=== PATIENT | male | born 1965 | race Two or more races ===

== ENCOUNTER 2023-04-22 20:33 | Emergency (ER) | payer MEDICAID, OTHER ==
[~2023-04-22] VITALS: Ht 182.9 cm; Wt 138.5 kg
[2023-04-22] MEDS: SODIUM CHLORIDE 0.9% 1,000 ML IVB ONE (21:26)
[2023-04-22 21:37] LABS: Basophils # (auto) 0 10 ^3/uL (0-0.2); Basophils % (auto) 0.7 % (0.0-2.0); Eosinophils # (auto) 0.4 10 ^3/uL (0-0.8); Eosinophils % (auto) 5.7 % (0.0-7.0); Hematocrit 38.7 % (41.0-53.0); Hemoglobin 12.9 g/dL (13.5-17.5); Lymphocytes # (auto) 1.1 10 ^3/uL (0.4-5.4); Mean Corpuscular Hemoglobin 28.2 pg (28.0-32.0); Mean Corpuscular Hgb Conc. 33.4 g/dL (32.0-36.0); Mean Corpuscular Volume 84.5 fL (80.0-100.0); Monocytes # (auto) 0.5 10 ^3/uL (0-1.3); Monocytes % (auto) 7.9 % (0.0-12.0); Neutrophils # (auto) 4.7 10 ^3/uL (1.6-8.6); Neutrophils % (auto) 69.7 % (37.0-80.0); Nucleated Red Blood Cells % 0.2 %; Red Blood Cells 4.57 10^6/uL (4.5-5.90); Red Cell Distribution Width 13.2 % (11.8-14.3); White Blood Cell 6.7 10^3/uL (4.4-10.8)
[2023-04-22] MEDS: ONDANSETRON HCL 4 MG/2 ML VIAL IV ONE (21:39)
[2023-04-22] MEDS: MORPHINE SULFATE 4 MG/ML SYR/VIAL IV ONE (21:40)
[2023-04-22 21:52] LABS: INR 1.13 (0.9-1.15); Prothrombin Time 11.8 sec (9.3-11.8)
[2023-04-22 21:53] LABS: Alanine Aminotransferase 49 U/L (7-40); Albumin 4.4 g/dL (3.2-4.8); Alkaline Phosphatase 110 U/L (46-116); Anion Gap 9 (5-15); Aspartate Aminotransferase 51 U/L (13-40); BUN/Creatinine Ratio 7.6 (10.0-20.0); Blood Urea Nitrogen 8 mg/dL (9-23); Calcium 8.7 mg/dL (8.7-10.4); Carbon Dioxide 22 mmol/L (20-30); Chloride 109 mmol/L (98-107); Glucose 108 mg/dL (74-106); Lipase 54 U/L (12-53); Potassium 3.1 mmol/L (3.5-5.1); Sodium 140 mmol/L (136-145)
[2023-04-22 21:54] LABS: Bilirubin, Total 0.6 mg/dL (0.2-1.0); Total Protein 7.7 g/dL (5.7-8.2)
[2023-04-22 22:03] LABS: Rapid Influenza A Negative (Negative); Rapid Influenza B Negative (Negative)
[2023-04-22 22:04] LABS: COVID19 ANTIGEN SOFIA FIA NEGATIVE (NEGATIVE)
[2023-04-22] MEDS: POTASSIUM CHL 20 Meq TABLET PO ONE (23:22)
[2023-04-23] MEDS: IOHEXOL 350 MG/ML 100ML IJ ONE (00:09)
[2023-04-23] MEDS ORDERED: ZOFR4T PO (01:41)
[2023-04-23] MEDS ORDERED: APIX5TAB PO (01:41)
[2023-04-23] MEDS ORDERED: METO25TA5 PO (01:41)
[2023-04-23] MEDS ORDERED: AUG875T PO (01:41)
[2023-04-23] MEDS ORDERED: ACET-1304 PO (01:41)
[2023-04-23] MEDS: METOPROLOL SUCCINATE XL 50 MG TAB PO ONE (02:03)
[2023-04-23 02:08] VITALS: BP 178/112; PULSE 97; RESP 18; TEMP 98.4; O2SAT 95
== END 2023-04-23 02:10 | disposition home or self-care (01) ==
LOC: ER 20:33
DX: R07.89 Other chest pain (principal); J06.9 Acute upper respiratory infection, unspecified; R11.10 Vomiting, unspecified; R19.7 Diarrhea, unspecified; I10 Essential (primary) hypertension; Z20.822 Contact with and (suspected) exposure to COVID-19
CPT/HCPCS: 36415; 70450; 71045; 71275; 80053; 83690; 83880; 84484; 85025; 85379; 85610; 85730; 87426; 87804; 93005; 96361; 96374; 96375; 99285; J2270; J2405; J7030; Q9967

== ENCOUNTER 2023-05-04 05:01 | Inpatient (IN) | payer MEDICAID ==
[~2023-05-04] VITALS: Ht 180.3 cm; Wt 169.8 kg
[~2023-05-04 05:01] MED LIST: ACET-1304 PO; APIX5TAB PO; AUG875T PO; METO25TA5 PO; ZOFR4T PO
[2023-05-04 05:27] LABS: Basophils # (auto) 0.1 10 ^3/uL (0-0.2); Basophils % (auto) 0.7 % (0.0-2.0); Eosinophils # (auto) 0.2 10 ^3/uL (0-0.8); Eosinophils % (auto) 1.7 % (0.0-7.0); Hemoglobin 12.4 g/dL (13.5-17.5); Lymphocytes # (auto) 1.3 10 ^3/uL (0.4-5.4); Mean Corpuscular Hemoglobin 28.3 pg (28.0-32.0); Mean Corpuscular Hgb Conc. 33.4 g/dL (32.0-36.0); Mean Corpuscular Volume 84.8 fL (80.0-100.0); Monocytes # (auto) 0.6 10 ^3/uL (0-1.3); Monocytes % (auto) 6.3 % (0.0-12.0); Neutrophils # (auto) 7.3 10 ^3/uL (1.6-8.6); Neutrophils % (auto) 77.3 % (37.0-80.0); Red Blood Cells 4.37 10^6/uL (4.5-5.90); White Blood Cell 9.4 10^3/uL (4.4-10.8)
[2023-05-04 05:43] LABS: Alanine Aminotransferase 16 U/L (7-40); Alkaline Phosphatase 105 U/L (46-116); Anion Gap 7 (5-15); Aspartate Aminotransferase 21 U/L (13-40); BUN/Creatinine Ratio 10.6 (10.0-20.0); Blood Urea Nitrogen 10 mg/dL (9-23); Calcium 9.2 mg/dL (8.7-10.4); Carbon Dioxide 24 mmol/L (20-30); Chloride 111 mmol/L (98-107); Glucose 120 mg/dL (74-106); Magnesium 1.8 mg/dL (1.6-2.6); Potassium 3.2 mmol/L (3.5-5.1); Sodium 142 mmol/L (136-145)
[2023-05-04 05:44] LABS: Bilirubin, Total 0.6 mg/dL (0.2-1.0); Total Protein 6.7 g/dL (5.7-8.2)
[2023-05-04 06:16] LABS: INR 1.1 (0.9-1.15); Partial Thromboplastin Time 34.2 SEC (24.5-34.5); Prothrombin Time 11.5 sec (9.3-11.8)
[2023-05-04] MEDS: ASPirin-EC 325mg tab PO ONE (07:38)
[2023-05-04] MEDS: POTASSIUM EFFERVESENT TAB 25 MEQ PO ONE (07:38)
[2023-05-04 09:00] VITALS: PULSE 95; RESP 21; O2SAT 93
[2023-05-04] MEDS: NITROGLYCERIN 2% OINT 1GM PKG TD ONE (09:08)
[2023-05-04] MEDS: MORPHINE SULFATE 4 MG/ML SYR/VIAL IV ONE (09:09)
[2023-05-04] MEDS ORDERED: NITROGLYCERIN 0.4 MG SL TAB SL PRN (10:00)
[2023-05-04] MEDS ORDERED: ASPirin 81 mg TAB PO SCH (10:00)
[2023-05-04] MEDS: APIXABAN 5 MG TAB PO SCH (12:11)
[2023-05-04] MEDS: DOCUSATE SOD 100 MG CAP PO SCH (12:11)
[2023-05-04] MEDS: METOPROLOL TARTRATE 25 MG TAB PO SCH (12:12)
[2023-05-04 19:40] VITALS: PULSE 90; RESP 18; O2SAT 94
[2023-05-04] MEDS: MORPHINE SULFATE 4 MG/ML SYR/VIAL IV PRN (20:16)
[2023-05-04] MEDS: ONDANSETRON HCL 4 MG/2 ML VIAL IV PRN (20:17)
[2023-05-04] MEDS ORDERED: ATORVASTATIN 20 MG TAB PO SCH (22:00)
[2023-05-04] MEDS: ATORVASTATIN 20 MG TAB PO SCH (22:07)
[2023-05-04 23:50] VITALS: PULSE 75; RESP 19; O2SAT 98
[2023-05-05] VITALS (11 sets, daily range): BP systolic 128–141; BP diastolic 76–79; PULSE 74–90; RESP 16–19; TEMP 97.5–98.1; O2SAT 94–99
[2023-05-05] MEDS: ACETAMINOPHEN 325 MG TAB PO PRN (00:16)
[2023-05-05 06:21] LABS: Basophils # (auto) 0 10 ^3/uL (0-0.2); Basophils % (auto) 0.7 % (0.0-2.0); Eosinophils # (auto) 0.3 10 ^3/uL (0-0.8); Eosinophils % (auto) 4.2 % (0.0-7.0); Hematocrit 35.2 % (41.0-53.0); Hemoglobin 11.6 g/dL (13.5-17.5); Lymphocytes # (auto) 0.9 10 ^3/uL (0.4-5.4); Lymphocytes % (auto) 13.8 % (10.0-50.0); Mean Corpuscular Hemoglobin 28.3 pg (28.0-32.0); Mean Corpuscular Volume 85.6 fL (80.0-100.0); Monocytes # (auto) 0.6 10 ^3/uL (0-1.3); Neutrophils # (auto) 4.8 10 ^3/uL (1.6-8.6); Neutrophils % (auto) 72.3 % (37.0-80.0); Nucleated Red Blood Cells % 0.1 %; Red Blood Cells 4.11 10^6/uL (4.5-5.90); Red Cell Distribution Width 13.2 % (11.8-14.3); White Blood Cell 6.6 10^3/uL (4.4-10.8)
[2023-05-05 06:35] LABS: Alanine Aminotransferase 12 U/L (7-40); Albumin 3.6 g/dL (3.2-4.8); Alkaline Phosphatase 92 U/L (46-116); Anion Gap 4 (5-15); Aspartate Aminotransferase 17 U/L (13-40); BUN/Creatinine Ratio 9.6 (10.0-20.0); Blood Urea Nitrogen 9 mg/dL (9-23); Calcium 8.7 mg/dL (8.5-10.1); Carbon Dioxide 29 mmol/L (20-30); Chloride 108 mmol/L (98-107); Cholesterol 173 mg/dL (< 200); Glucose 93 mg/dL (74-106); HDL Cholesterol 31 mg/dL (40-59); LDL Cholesterol 137 mg/dL (< 100); Potassium 3.6 mmol/L (3.5-5.1); Sodium 141 mmol/L (136-145); Triglycerides 71 mg/dL (< 150)
[2023-05-05 06:36] LABS: Bilirubin, Total 0.4 mg/dL (0.2-1.0); Total Protein 6.1 g/dL (5.7-8.2)
[2023-05-05 08:06] LABS: RPR Non Reactive (Non Reactive)
[2023-05-05 08:44] LABS: Hepatitis B Surface Antigen Negative (Negative)
[2023-05-05 09:05] LABS: Hepatitis C Antibody Negative (Negative)
[2023-05-05] MEDS: ASPirin 81 mg TAB PO SCH (09:05)
[2023-05-05] MEDS: amLODIPine BESYLATE 5 MG TAB PO ONE (19:53)
[2023-05-05 20:39] LABS: % Iron Saturation 12.3 % (20-55)
[2023-05-05 20:43] LABS: Folate (Folic Acid) 7.3 ng/mL (>5.38)
[2023-05-05 20:44] LABS: Ferritin 98.2 ng/mL (22-322)
[2023-05-05 20:48] LABS: CRP High Sensitivity 2.36 mg/dL (<1.0)
[2023-05-05 21:09] LABS: Erythrocyte Sedimentation Rate 33 mm/hr (0-20)
[2023-05-05 21:13] LABS: Magnesium 1.9 mg/dL (1.6-2.6)
[2023-05-06] VITALS (12 sets, daily range): BP systolic 128–144; BP diastolic 60–104; PULSE 76–91; RESP 14–19; TEMP 97.6–98.4; O2SAT 94–100
[2023-05-06 02:56] LABS: Urine Bacteria NONE SEEN /hpf (None Seen); Urine Blood Negative /uL (Negative); Urine Clarity Clear (Clear); Urine Protein, UAD Negative (Negative); Urine Specific Gravity 1.014 (1.001-1.035); Urine Urobilinogen Normal (Negative); Urine WBC <1 /hpf (0 - 3); Urine pH 5.5 (5.0-8.0)
[2023-05-06 03:00] LABS: Urine Color Straw (Yellow)
[2023-05-06 03:10] LABS: Amphetamine Screen, Urine Neg (NEGATIVE)
[2023-05-06 03:11] LABS: Barbiturate Scree,Urine Neg (NEGATIVE); Benzodiazephine Screen, Urine Neg (NEGATIVE); Cannabinoid Screen, Urine Neg (NEGATIVE); Cocaine Screen, Urine Neg (NEGATIVE); Opiate Scree,Urine Neg (NEGATIVE); Phencyclidine Screen, Urine Neg (NEGATIVE)
[2023-05-06 03:12] LABS: Creatinine, Urine 89.19 mg/dL (30.0-125.0)
[2023-05-06 04:13] LABS: Rapid Influenza A Negative (Negative); Rapid Influenza B Negative (Negative)
[2023-05-06 04:14] LABS: COVID19 ANTIGEN SOFIA FIA NEGATIVE (NEGATIVE)
[2023-05-06 08:50] LABS: Chloride 108 mmol/L (98-107); Potassium 3.9 mmol/L (3.5-5.1); Sodium 141 mmol/L (136-145)
[2023-05-06 08:51] LABS: Anion Gap 3 (5-15); Carbon Dioxide 30 mmol/L (20-30)
[2023-05-06 08:52] LABS: Calcium 8.7 mg/dL (8.5-10.1)
[2023-05-06 08:56] LABS: Blood Urea Nitrogen 12 mg/dL (9-23); Glucose 98 mg/dL (74-106)
[2023-05-06] MEDS ORDERED: amLODIPine BESYLATE 5 MG TAB PO SCH (10:00)
[2023-05-06 10:40] LABS: Magnesium 1.9 mg/dL (1.6-2.6)
[2023-05-06] MEDS: amLODIPine BESYLATE 5 MG TAB PO ONE (10:59)
[2023-05-06] MEDS: TOPIRAMATE 25 MG TAB PO SCH (11:00)
[2023-05-06 13:18] LABS: Basophils # (auto) 0.1 10 ^3/uL (0-0.2); Basophils % (auto) 1.4 % (0.0-2.0); Eosinophils # (auto) 0.3 10 ^3/uL (0-0.8); Eosinophils % (auto) 4.2 % (0.0-7.0); Hematocrit 35.9 % (41.0-53.0); Hemoglobin 11.8 g/dL (13.5-17.5); Lymphocytes % (auto) 15.7 % (10.0-50.0); Mean Corpuscular Hgb Conc. 32.9 g/dL (32.0-36.0); Mean Corpuscular Volume 85.2 fL (80.0-100.0); Monocytes # (auto) 0.6 10 ^3/uL (0-1.3); Monocytes % (auto) 9.4 % (0.0-12.0); Neutrophils # (auto) 4.3 10 ^3/uL (1.6-8.6); Neutrophils % (auto) 69.3 % (37.0-80.0); Red Blood Cells 4.22 10^6/uL (4.5-5.90); White Blood Cell 6.2 10^3/uL (4.4-10.8)
[2023-05-06] MEDS: IOHEXOL 300 MG/ML 100ML BOTTLE IJ ONE (14:05)
[2023-05-06] MEDS: FERROUS SULFATE 325mg EC TAB PO SCH (17:16)
[2023-05-07] VITALS (9 sets, daily range): BP systolic 118–158; BP diastolic 73–91; PULSE 73–88; RESP 14–20; TEMP 97.5–98.4; O2SAT 97–99
[2023-05-07] MEDS: ACETAMINOPHEN 325 MG TAB PO PRN (04:35)
[2023-05-07 05:25] LABS: Chloride 108 mmol/L (98-107); Potassium 3.8 mmol/L (3.5-5.1); Sodium 138 mmol/L (136-145)
[2023-05-07 05:26] LABS: Anion Gap 4 (5-15); Carbon Dioxide 26 mmol/L (20-30)
[2023-05-07 05:27] LABS: Calcium 8.5 mg/dL (8.7-10.4)
[2023-05-07 05:31] LABS: Glucose 105 mg/dL (74-106)
[2023-05-07 05:32] LABS: BUN/Creatinine Ratio 11.5 (10.0-20.0); Blood Urea Nitrogen 10 mg/dL (9-23)
[2023-05-07 08:07] LABS: Haptoglobin 153 mg/dL (29-370)
[2023-05-07] MEDS: amLODIPine BESYLATE 5 MG TAB PO SCH (10:18)
[2023-05-07 12:07] LABS: Anti-Centromere B Antibody <0.2 AI (0.0-0.9); Anti-Jo-1 Antibody <0.2 AI (0.0-0.9); Anti-dsDNA Antibody <1 IU/mL (0-9); Antichromatin Antibody <0.2 AI (0.0-0.9); Antiscleroderma-70 Antibody <0.2 AI (0.0-0.9); RNP Antibody <0.2 AI (0.0-0.9); Sjogren's Anti-SS-A Antibody <0.2 AI (0.0-0.9); Sjogren's Anti-SS-B Antibody 0.2 AI (0.0-0.9); Smith Antibody <0.2 AI (0.0-0.9)
[2023-05-07 13:06] LABS: Anti-Nuclear Antibody Direct Negative (Negative)
[2023-05-07] MEDS: PANTOPRAZOLE 40 MG TAB PO ONE (15:02)
[2023-05-07 15:06] LABS: Protein S Antigen Free 137 % (61-136); Protein S-Functional 121 % (63-140); Proten S Antigen Total 123 % (60-150)
[2023-05-08] VITALS (9 sets, daily range): BP systolic 123–137; BP diastolic 64–75; PULSE 72–83; RESP 14–20; TEMP 97.6–98.2; O2SAT 95–99
[2023-05-08] MEDS: PANTOPRAZOLE 40 MG TAB PO SCH (09:50)
[2023-05-08] MEDS ORDERED: METO25TA5 PO (11:19)
[2023-05-08] MEDS ORDERED: TOPI25TA84 PO (11:19)
[2023-05-08] MEDS ORDERED: POTA-228 PO (11:19)
[2023-05-08] MEDS ORDERED: FER325T PO (11:19)
[2023-05-08] MEDS ORDERED: AMLO1TAB23 PO (11:19)
[2023-05-08] MEDS ORDERED: APIX5TAB PO (11:19)
[2023-05-08] MEDS ORDERED: ATO40T PO (11:19)
[2023-05-08] MEDS ORDERED: MAGN400T40 PO (11:19)
[2023-05-08 13:06] LABS: Protein C Antigen 84 % (60-150)
[2023-05-10 19:06] LABS: Vitamin B1, Whole Blood 77.9 nmol/L (66.5-200.0)
[2023-05-10 23:06] LABS: Vitamin D 25-Hydroxy 14 ng/mL (.); Vitamin D-2 25-Hydroxy <1.0 ng/mL (.); Vitamin D-3 25-Hydroxy 14 ng/mL (.)
== END 2023-05-08 18:45 | disposition home health service (06) | DRG 203 ==
LOC: ER 05:01 → TELE-CENTR 10:09 → TELE 10:09 → TELE-CENTR 23:06
PROVIDERS: ADMIT Internal Medicine Geriatric Medicine; ATTEND Emergency Medicine
PROC: 5A09357 Assistance with Respiratory Ventilation, Less than 24 Consecutive Hours, Continuous Positive Airway Pressure (ICD-10-PCS; principal; 2023-05-05)
PROC: 5A09357 Assistance with Respiratory Ventilation, Less than 24 Consecutive Hours, Continuous Positive Airway Pressure (ICD-10-PCS; 2023-05-06)
PROC: 5A09357 Assistance with Respiratory Ventilation, Less than 24 Consecutive Hours, Continuous Positive Airway Pressure (ICD-10-PCS; 2023-05-07)
PROC: 5A09357 Assistance with Respiratory Ventilation, Less than 24 Consecutive Hours, Continuous Positive Airway Pressure (ICD-10-PCS; 2023-05-08)
DX: M94.0 Chondrocostal junction syndrome [Tietze] (principal); D68.59 Other primary thrombophilia; E87.6 Hypokalemia; I10 Essential (primary) hypertension; G43.909 Migraine, unspecified, not intractable, without status migrainosus; G47.33 Obstructive sleep apnea (adult) (pediatric); K80.20 Calculus of gallbladder without cholecystitis without obstruction; D64.9 Anemia, unspecified; E83.42 Hypomagnesemia; E66.01 Morbid (severe) obesity due to excess calories; Z20.822 Contact with and (suspected) exposure to COVID-19; E78.5 Hyperlipidemia, unspecified; K21.9 Gastro-esophageal reflux disease without esophagitis; Z53.29 Procedure and treatment not carried out because of patient's decision for other reasons; A38.9 Scarlet fever, uncomplicated; Z86.718 Personal history of other venous thrombosis and embolism; Z86.711 Personal history of pulmonary embolism; Z87.442 Personal history of urinary calculi; Z79.01 Long term (current) use of anticoagulants; Z79.899 Other long term (current) drug therapy; Z79.2 Long term (current) use of antibiotics; Z99.3 Dependence on wheelchair; Z82.49 Family history of ischemic heart disease and other diseases of the circulatory system; Z83.3 Family history of diabetes mellitus; Z68.43 Body mass index [BMI] 50.0-59.9, adult
CPT/HCPCS: 36415; 70450; 70470; 71045; 72125; 72128; 72131; 74176; 80048; 80053; 80061; 80307; 80320; 81001; 81241; 82088; 82306; 82533; 82570; 82607; 82728; 82746; 83010; 83090; 83516; 83540; 83550; 83615; 83655; 83735; 83880; 83930; 83935; 84100; 84133; 84244; 84300; 84425; 84443; 84484; 85025; 85045; 85302; 85305; 85306; 85379; 85610; 85652; 85730; 86038; 86141; 86225; 86235; 86592; 86803; 87081; 87340; 87426; 87804; 93005; 93306; 93886; 94660; 96374; 96375; 96376; 97110; 97116; 97163; 97530; G0378; J2405